=== PATIENT | female | born 1995 | race Two or more races ===

== ENCOUNTER 2025-06-20 10:22 | Emergency (ER) | payer MEDICAID ==
[~2025-06-20] VITALS: Ht 162.6 cm; Wt 54.5 kg
[2025-06-20] MEDS: ASPirin-EC 325mg tab PO ONE (10:44)
[2025-06-20] MEDS: SUCRALFATE 1 GM TAB PO ONE (10:44)
[2025-06-20] MEDS: LIDOCAINE VISCOUS 2% 15ML UD PO ONE (10:44)
[2025-06-20] MEDS: PANTOPRAZOLE 40 MG TAB PO ONE (10:44)
[2025-06-20 10:57] LABS: Hematocrit 36.3 % (36.0-46.0); Hemoglobin 12.7 g/dL (12.2-16.2); Mean Corpuscular Hemoglobin 29.6 pg (28.0-32.0); Mean Corpuscular Volume 84.5 fL (80.0-100.0); Nucleated Red Blood Cells % 0.0 %
--- NOTE | 2025-06-20 11:04 | ED.PDOC ---
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 29-year-old female who presents to the ED with c/c of left lower quadrant abdominal pain in Patient states she is currently with home past 3 weeks prior being positive Patient states since last night she has been having left lower quadrant nonradiating pain Patient patient states in last she did not have the symptoms and got concerned and came for further evaluation Patient denies any associated symptoms and otherwise denies vaginal bleeding nausea vomiting fever chills dysuria or associated symptoms Patient states she recently moved from [place] to [facility] and has not yet established care with OB Patient states last menstrual period :April 20, 2025 by Patient in the ED otherwise has stable vitals Past medical history: denies Past surgical history: 1xC-section Medications: Denies Allergies: Denies Social history: Denies ETOH denies drug use denies tobacco use REVIEW OF SYSTEMS: CONSTITUTIONAL: Denies acute: fever, diaphoresis, chills, generalized weakness. HEAD: Denies acute: headache, photophobia Eyes: Denies acute: Double vision, vision loss, eye pain, eye discharge. EARS: Denies acute: tinnitus, hearing loss, ear discharge, ear pain, THROAT: Denies acute: sore throat, swelling, difficulty swallowing , pain with s wallowing, change in voice. NECK: Denies acute: neck pain, neck swelling, stiff neck. HEART: Denies acute : chest pain, palpitations, LUNGS: Denies acute: SOB, wheezing, cough, hemoptysis ABDOMEN: Denies acute: Nausea, Vomiting, diarrhea, melena , hematemesis, hematochezia SKIN: Denies acute: rash, redness, lesions, itchiness. EXTREMITIES: Denies acute: calf pain, numbness, tingling, weakness, denies pain in extremity. Denies acute: Low back pain. Neuro: Denies acute: focal neurological deficit, motor or sensory focal neurological deficit, tremors, seizure like activity, confusion, dizziness, change in mental status, loss of bowel or bladder function, cauda equina like symptoms. : Denies acute: dysuria, hematuria, flank pain, increase in urinary frequency. PSYCH: Denies acute: hallucination, suicidal ideation, homicidal ideation. FEMALE: Denies acute: abnormal vaginal bleeding, foul odor, unusual discharge. PHYSICAL EXAM: General: ----no----acute distress, awake and alert. Head: normocephalic, atraumatic. Neck: supple, trachea is midline, no swelling. Throat: Normal phonation. Eyes:, no erythema, no purulent discharge, no proptosis, no icterus. Heart: regular rate, regular rhythm, no significant murmur appreciated. Lungs: no apparent respiratory distress, Able to speak in full sentences. No wheezing, no rhonchi, no crackles. No stridors Clear to auscultation bilaterally. Abdomen: Focal minimal left lower quadrant tender to palpation, non distended, soft, no guarding, no rebound, + bowel sounds. Neuro: Awake, Alert, oriented to name, self, situation, follows commands GCS=15. Speech is normal. Skin: no petechia, no purpura, no cyanosis, non-pale, not jaundice. Lower extremities: --no - Pitting edema no deformity, no focal swelling, no calf TTP. Makes eye contact. moves all four extremities. Face: no apparent facial droop. Ambulating in the ED independently. ED COURSE: DISCLAIMER: This medical document was created using an electronic medical record system with voice recognition software and computerized dictation system. Although this document has been carefully reviewed, there might still be some phonetic and typographical errors. Occasional wrong-word or "sound-alike" substitutions may have occurred due to the inherent limitations of voice recognition software. These areas are purely typographical due to imperfections of the software programs and do not reflect any compromise in the patient's medical care. Please read the chart carefully and recognize, using context, where these substitutions have occurred. Chief Complaint: Abdominal Pain Time Seen by MD: 10:27 Reviewed Notes: Medications, Allergies Allergies: Coded Allergies: NO KNOWN ALLERGIES (Unverified , 06/20/25) Information Source: Patient Mode of Arrival: Ambulatory Was a procedure done? 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) Vaginal Bleeding: - Complete, - Incomplete, - Inevitable, - Missed, - Threatened, Abruptio Placentae, Blood Loss Anemia, Dysmenorrhea, Ectopic , Hormonal, Menorrhagia, Menometrorrhagia, Menstrual Bleeding, Myomatous Uterus, PID, Placenta Previa, Precipitous Hct, Trauma, UTI, Vaginitis, Other (DDX include Diverticulitis, colitis, gastroenteritis, acute abdomen, SBO, enteritis, constipation, volvulus, appendicitis, Gallbladder disease, choledocolithiasis, ascending cholangitis, pancreatitis, intraAbdominal mass/neoplasm, hepatitis, UTI, pylonephritis, kidney stone, aneurysm, dissection, Inflammatory bowel disease, gastroparesis, ischemic bowel,,,,,,ovarian torsion, ovarian cyst/mass, tubo-ovarian abscess, , ectopic , PID, STD.) X-Ray, Labs, Meds, VS Vital Signs Date Time Temp Pulse Resp B/P (MAP) Pulse Ox O2 Delivery O2 Flow Rate FiO2 06/20/25 12:31 98.3 71 18 108/72 (84) 100 98.3 06/20/25 10:23 97.6 98 18 112/69 98 97.6 Lab Test 06/20/25 11:00 06/20/25 10:34 Range/Units Urine Color Yellow Yellow Urine Clarity Clear Clear Urine pH 6.5 5.0-9.0 Urine Specific [place] 1.028 1.001-1.035 Urine Protein Trace H Negative Urine Ketones 1+ H Negative Urine Blood Negative Negative /uL Urine Nitrite Negative Negative Urine Bilirubin Negative Negative Urine Urobilinogen Normal Negative mg/dL Urine Leukocyte Esterase Negative Negative /uL Urine RBC 1 0 - 4 /hpf Urine Microscopic WBC 1 0-5 /HPF Urine Squamous Epithelial Cells Few <5 /hpf Urine Bacteria None seen None Seen /hpf Urine Mucus Few None Seen Urine Glucose Normal Normal mg/dL White Blood Count 9.9 4.4-10.8 10^3/uL Red Blood Count 4.30 4.0-5.20 10^6/uL Hemoglobin 12.7 12.2-16.2 g/dL Hematocrit 36.3 36.0-46.0 % Mean Corpuscular Volume 84.5 80.0-100.0 fL Mean Corpuscular Hemoglobin 29.6 28.0-32.0 pg Mean Corpuscular Hemoglobin Concent 35.0 32.0-36.0 g/dL Red Cell Distribution Width 12.8 11.8-14.3 % Platelet Count 310 140-450 10^3/uL Mean Platelet Volume 7.5 6.9-10.8 fL Neutrophils (%) (Auto) 78.8 37.0-80.0 % Lymphocytes (%) (Auto) 15.0 10.0-50.0 % Monocytes (%) (Auto) 5.5 0.0-12.0 % Eosinophils (%) (Auto) 0.4 0.0-7.0 % Basophils (%) (Auto) 0.3 0.0-2.0 % Neutrophils # (Auto) 7.8 1.6-8.6 10 ^3/uL Lymphocytes # (Auto) 1.5 0.4-5.4 10 ^3/uL Monocytes # (Auto) 0.5 0-1.3 10 ^3/uL Eosinophils # (Auto) 0 0-0.8 10 ^3/uL Basophils # (Auto) 0 0-0.2 10 ^3/uL Nucleated Red Blood Cells 0.0 % Sodium Level 137 136-145 mmol/L Potassium Level 3.5 3.5-5.1 mmol/L Chloride Level 103 98-107 mmol/L Carbon Dioxide Level 26 20-31 mmol/L Anion Gap 8 5-15 Blood Urea Nitrogen 6 L 9-23 mg/dL Creatinine 0.72 0.550-1.02 mg/dL Glomerular Filtration Rate Calc 117 >90 mL/min BUN/Creatinine Ratio 8.3 L 10.0-20.0 Serum Glucose 87 74-106 mg/dL Calcium Level 9.5 8.7-10.4 mg/dL Total Bilirubin 0.6 0.2-1.0 mg/dL Aspartate Amino Transferase (AST) 17 13-40 U/L Alanine Aminotransferase (ALT) 12 7-40 U/L Alkaline Phosphatase 47 46-116 U/L Total Protein 7.4 5.7-8.2 g/dL Albumin 4.5 3.2-4.8 g/dL Beta HCG, Quantitative 016168.9 H 1.5-4.2 mIU/mL [address] [address] Ph: [phone] DIAGNOSTIC IMAGING Diagnostic Imaging Report : [id number] Signed PATIENT: EDUARDO MULLEN ACCT: [id number] UNIT: [id number] : 1995 LOC: ER ROOM / BED: / AGE / SEX: 29 / F ADM STATUS: REG ER SERVICE 1100 ORDERING PHYSICIAN: BRENNAN MOREIRA DO PROCEDURE(s): OB4US - OB ULTRASOUND COMP LESS 14WKS REASON: LLQ discomfort ORDER NUMBER(s): [id number], ACCESSION NUMBER(s): [id number] OB ULTRASOUND <14 WEEKS: HISTORY: LLQ discomfort TECHNIQUE: Multiple real-time grayscale sonographic images of the pelvis with duplex Doppler color flow, spectral and M-mode analysis. TRANSDUCERS: Transabdominal COMPARISON: None FINDINGS: The uterus measures 8.2 x 5.3 x 7.6 cm The cervix is not visualized Right ovary measures 3.0 x 2.4 x 2.0 cm with normal Doppler color flow. Left ovary measures 3.8 x 2.0 x 2.4 cm with normal Doppler color flow. IUP single fetus at 10 weeks and 0 days average ultrasound age based on mean crown-rump length of 3.04 cm and gestational sac size of 4.48 cm heart rate detected at 164 beats per minute. Yolk sac is present. Amniotic fluid is subjectively within normal limits Kellee-gestational space: Unremarkable IMPRESSION: IUP single live fetus 10 weeks and 0 days AUA corresponding to an LUCINDA of 01/16/2026. No acute abnormality detected. ATED BY: NICHOLAS ANDERSON MD DICTATED DATE/TIME: 06/20/25 1232 SIGNED BY: NICHOLAS ANDERSON MD SIGNED DATE/TIME: 06/20/25 1232 CC: Time of 1ST Reevaluation: 00:00 Reevaluation 1ST: N/A Patient Education/Counseling: Diagnosis, Treatment Family Education/Counseling: No Family Present Comments MDM: patient presented with the above HPI.---abdominal pain in ---workup was initiated. patient was found with the above mentioned diagnosis. the following medications were ordered: please refer to order lists of meds and tests obtained by myself Dr. Moreira. Patient ED course and VS have been stabilized. Patient has been reassessed in the ED and remained in a stable condition. Pertinent incidental findings were discussed with the patient and/or family. Patient/family voices understanding and is agreeable with plan. Patient has been observed in the ED adequate length of time to insure improvement/stability. Escalation of care considered: Consideration of escalation to observation or admission Patient was DISCHARGED home in a stable condition. All the reports of any imaging studies that were ordered by myself were reviewed by myself. Departure 1 Departure Time of Disposition: 12:46 Impression: Primary Impression: Normal IUP (intrauterine ) on ultrasound Additional Impression: Left lower quadrant abdominal pain Disposition: 01 HOME / SELF CARE / HOMELESS Condition: Stable Additional Instructions: Additional instructions: Please read all instructions provided in this packet carefully. You MUST follow-up with your primary care/family doctor in 1 to 2 days. If you are unable to see your primary care/family doctor, please return to our emergency room for re-assessment and re-evaluation in 1 to 2 days. Return to the emergency room here in our facility or to the nearest ER [facility] if your symptoms change or worsen. CONSULTATIONS: you MUST Follow-up for consultation as soon as possible with: Dr.-OB Sharma doctor in 1-2 days. Please call for appointment. You MUST call the consultants office yourself to make an appointment. You may need to arrange that through your insurance and/or your primary/family doctor. If you are unable to see the help desk consultant in 1 to 2 days, you must return to our emergency room (or any other ER of your choice) for re-assessment and re- evaluation. Adequate fluid hydration. Although you have been discharged from the Emergency Department, this does not mean that you have a "clean bill of health". No definitive diagnosis for your symptoms has been made today. It is possible that you are in the process of developing a serious illness. This is why you must return to the ED without fail if any new or worsening symptoms develop. Absolute pelvic rest. beta hC.9 on 06/20/25 Repeat beta-hCG levels in 48-72 hours. Repeat pelvic ultrasound in 5-6 days. Below is a copy of your radiological report for follow up: [address] [address] Ph: [phone] DIAGNOSTIC IMAGING Diagnostic Imaging Report : [id number] Signed PATIENT: EDUARDO MULLEN ACCT: [id number] UNIT: [id number] : 1995 LOC: ER ROOM / BED: / AGE / SEX: 29 / F ADM STATUS: REG ER SERVICE 1100 ORDERING PHYSICIAN: BRENNAN MOREIRA DO PROCEDURE(s): OB4US - OB ULTRASOUND COMP LESS 14WKS REASON: LLQ discomfort ORDER NUMBER(s): [id number], ACCESSION NUMBER(s): [id number] OB ULTRASOUND <14 WEEKS: HISTORY: LLQ discomfort TECHNIQUE: Multiple real-time grayscale sonographic images of the pelvis with duplex Doppler color flow, spectral and M-mode analysis. TRANSDUCERS: Transabdominal COMPARISON: None FINDINGS: The uterus measures 8.2 x 5.3 x 7.6 cm The cervix is not visualized Right ovary measures 3.0 x 2.4 x 2.0 cm with normal Doppler color flow. Left ovary measures 3.8 x 2.0 x 2.4 cm with normal Doppler color flow. IUP single fetus at 10 weeks and 0 days average ultrasound age based on mean crown-rump length of 3.04 cm and gestational sac size of 4.48 cm heart rate detected at 164 beats per minute. Yolk sac is present. Amniotic fluid is subjectively within normal limits Kellee-gestational space: Unremarkable IMPRESSION: IUP single live fetus 10 weeks and 0 days AUA corresponding to an LUCINDA of . No acute abnormality detected. ATED BY: NICHOLAS ANDERSON MD DICTATED DATE/TIME: 06/20/25 1232 SIGNED BY: NICHOLAS ANDERSON MD SIGNED DATE/TIME: 06/20/25 1232 CC: Discharged With: Self Critical Care Note Critical Care Time?: No I personally scribed for BRENNAN MOREIRA DO ([email or web address]) on 06/20/25 at 11:04. Electronically submitted by Chung Wall ([email or web address]). I personally scribed for BRENNAN MOREIRA DO ([email or web address]) on 06/20/25 at 12:35. Electronically submitted by Chung Wall ([email or web address]). I personally scribed for BRENNAN MOREIRA DO ([email or web address]) on 06/20/25 at 12:57. Electronically submitted by Chung Wall ([email or web address]). I personally scribed for BRENNAN MOREIRA DO ([email or web address]) on 06/20/25 at 20:49. Electronically submitted by Chung Wall ([facility] BRENNAN MOREIRA DO Jun 20, 2025 11:04
[2025-06-20 11:12] LABS: Alanine Aminotransferase 12 U/L (7-40); Albumin 4.5 g/dL (3.2-4.8); Alkaline Phosphatase 47 U/L (46-116); Anion Gap 8 (5-15); BUN/Creatinine Ratio 8.3 (10.0-20.0); Bilirubin, Total 0.6 mg/dL (0.2-1.0); Calcium 9.5 mg/dL (8.7-10.4); Carbon Dioxide 26 mmol/L (20-31); Chloride 103 mmol/L (98-107); Glucose 87 mg/dL (74-106); Potassium 3.5 mmol/L (3.5-5.1); Sodium 137 mmol/L (136-145); Total Protein 7.4 g/dL (5.7-8.2)
[2025-06-20 11:26] LABS: Blood Urea Nitrogen 6 mg/dL (9-23)
[2025-06-20 12:07] LABS: Urine Protein, UAD TRACE (Negative)
[2025-06-20 12:31] VITALS: BP 108/72; PULSE 71; RESP 18; TEMP 98.3; O2SAT 100
--- NOTE | 2025-06-20 12:35 | DVH ---
OB ULTRASOUND <14 WEEKS: HISTORY: LLQ discomfort TECHNIQUE: Multiple real-time grayscale sonographic images of the pelvis with duplex Doppler color f low, spectral and M-mode analysis. TRANSDUCERS: Transabdominal COMPARISON: None FINDINGS: The uterus measures 8.2 x 5.3 x 7.6 cm The cervix is not visualized Right ovary measures 3.0 x 2.4 x 2.0 cm with normal Doppler color flow. Left ovary measures 3.8 x 2.0 x 2.4 cm with normal Doppler color flow. IUP single fetus at 10 weeks and 0 days average ultrasound age based on mean crown-rump length of 3. 04 cm and gestational sac size of 4.48 cm heart rate detected at 164 beats per minute. Yolk sac is present. Amniotic fluid is subjectively within normal limits Kellee-gestational space: Unremarkable IMPRESSION: IUP single live fetus 10 weeks and 0 days AUA corresponding to an LUCINDA of 01/16/2026. No acute abnormality detected.
== END 2025-06-20 13:02 | disposition home or self-care (01) ==
LOC: ER 10:22
DX: O26.891 Other specified pregnancy related conditions, first trimester (principal); Z3A.10 10 weeks gestation of pregnancy; R10.2 Pelvic and perineal pain
CPT/HCPCS: 36415; 76801; 80053; 81001; 84702; 85025

== ENCOUNTER 2025-08-05 09:54 | Outpatient (CLI) | payer MEDICAID ==
[2025-08-05 11:03] LABS: Hematocrit 35.4 % (36.0-46.0); Hemoglobin 12.1 g/dL (12.2-16.2); Mean Corpuscular Hemoglobin 29.8 pg (28.0-32.0); Mean Corpuscular Volume 87.2 fL (80.0-100.0); Nucleated Red Blood Cells % 0.0 %
[2025-08-05 11:37] LABS: Amphetamine Screen, Urine Neg (NEGATIVE); Barbiturate Scree,Urine Neg (NEGATIVE); Benzodiazephine Screen, Urine Neg (NEGATIVE); Cannabinoid Screen, Urine Neg (NEGATIVE); Cocaine Screen, Urine Neg (NEGATIVE); Opiate Scree,Urine Neg (NEGATIVE); Phencyclidine Screen, Urine Neg (NEGATIVE)
== END 2025-08-08 17:00 | disposition home or self-care (01) ==
LOC: LAB 09:54
PROVIDERS: ATTEND Obstetrics & Gynecology
DX: Z34.80 Encounter for supervision of other normal pregnancy, unspecified trimester (principal); Z11.3 Encounter for screening for infections with a predominantly sexual mode of transmission; Z72.51 High risk heterosexual behavior
CPT/HCPCS: 36415; 80307; 83036; 84144; 84702; 85025; 86703; 86762; 86780; 86850; 86900; 86901; 87086; 87340